=== PATIENT | female | born 1970 | race Caucasian/White ===

== ENCOUNTER 2019-03-30 13:23 | Inpatient (IN) ==
[2019-03-30] MEDS ORDERED: MORPHINE IV PRN (14:58)
[2019-03-30] MEDS ORDERED: LR 1,000 ML IV SCH (15:00)
[2019-03-30] MEDS: ZOSYN 3.375 GM in NS 50 ML IV SCH (20:39)
[2019-03-31] MEDS: ZOFRAN IV PRN ×2 (00:07→17:25)
[2019-03-31] MEDS: ZOSYN 3.375 GM in NS 50 ML IV SCH ×3 (03:30→14:30)
--- NOTE | 2019-03-31 06:07 | GENERAL SURGERY PROGRESS NOTE ---
DATE: 03/31/2019 SUBJECTIVE: Patient seems to be doing okay. No major complaints. OBJECTIVE: Vital signs: Patient is currently afebrile. Her vital signs are stable. General: No acute distress. HEENT: Normocephalic, atraumatic. Pupils equal, round, and reactive to light. Mucous membranes moist. Oropharynx benign. Neck: Supple. Trachea midline. Cardiovascular: Regular rate and rhythm. Lungs: Grossly clear. Abdomen: Soft. There is some discomfort in the right upper quadrant. No peritoneal signs. Extremities: Moves all extremities. Neurologic: Grossly intact. Skin: No signs of jaundice. Vascular: All extremities perfused. LABORATORY: None this morning. ASSESSMENT AND PLAN: A 48-year-old female with cholecystitis. Cholecystitis. At this time, we will plan on surgical intervention today. I discussed with her in the office yesterday the risks, benefits and alternatives. Risks including, but not limited to bleeding, infection, risk of anesthesia, risk of common bile duct injury, bile leak, and injury to other organs discussed. Again, we will plan on surgical intervention today. She is NPO. She is on antibiotics, and consent has been ordered. cc: Kenn Freedman MD
[2019-03-31] MEDS ORDERED: SENSORCAINE-MPF 0.5%/EPI 1:200,000 ONE (07:30)
[2019-03-31] MEDS ORDERED: LR 1,000 ML ONE (07:30)
[2019-03-31] MEDS ORDERED: DIPRIVAN 1% ONE (10:52)
[2019-03-31] MEDS ORDERED: TORADOL ONE (10:53)
[2019-03-31] MEDS ORDERED: XYLOCAINE-MPF 2% ONE (10:53)
[2019-03-31] MEDS ORDERED: ZOFRAN ONE (10:53)
[2019-03-31] MEDS ORDERED: DECADRON ONE (10:53)
[2019-03-31] MEDS ORDERED: ZEMURON ONE (10:53)
[2019-03-31] MEDS ORDERED: QUELICIN (DOSE) ONE (10:53)
[2019-03-31] MEDS ORDERED: VERSED ONE (12:11)
[2019-03-31] MEDS ORDERED: FENTANYL ONE (12:42)
[2019-03-31] MEDS ORDERED: ROBINUL ONE (13:00)
[2019-03-31] MEDS ORDERED: NEOSTIGMINE ONE (13:01)
[2019-03-31] MEDS: DILAUDID ONE ×2 (13:51→13:54)
--- NOTE | 2019-03-31 14:21 | OPERATIVE NOTE ---
PROCEDURE DATE: 03/31/2019 PREOPERATIVE DIAGNOSIS: Acute cholecystitis. POSTOPERATIVE DIAGNOSIS: Acute cholecystitis. PROCEDURES: Laparoscopic cholecystectomy. SURGEON: Kenn Freedman MD. MATERIAL CUTTER: None. ANESTHESIA: General endotracheal. OPERATIVE FINDINGS: Acute cholecystitis. COMPLICATIONS: None at the time of this dictation. ESTIMATED BLOOD LOSS: 30 mL. SPECIMEN REMOVED: Gallbladder. BRIEF HISTORY: A 48-year-old female presented to my office with cholecystitis. She wanted to have it removed. The risks, benefits, and alternatives for the procedure were discussed. Risks include, but not limited to bleeding, infection, risk of anesthesia, risk of common bile duct injury, bile leak, and injury to the organs discussed. All questions answered. DESCRIPTION OF PROCEDURE: After informed consent was obtained, the patient was brought to the operative theatre, transferred to the operating table, placed in the supine position. General endotracheal anesthesia was then performed without complication. Formal time-out was then performed confirming patient, date, procedure. All were in agreement. At that time, attention was given to the abdomen. An infraumbilical incision was made through which, using the Optiview technique, we inserted an 11 mm trocar, connected insufflation, pneumoperitoneum was achieved. Under direct visualization, we placed three more trocars, all 5 mm, 1 subxiphoid, 2 in the right upper quadrant. Using these, gallbladder was identified. It was distended and consistent with acute cholecystitis. We aspirated some of the fluid to facilitate retraction, retracted it, able to dissect out the cystic duct and cystic artery to achieve the critical view of safety. Doubly clipped and ligated the cystic duct and cystic artery, then dissected the gallbladder off the gallbladder fossa. We brought it out through the infraumbilical incision which had to be slightly enlarged to accommodate the stone burden. We then irrigated out the abdomen until suction fluid was clear. We examined the clips; they were in good position. No drainage of bile. No active bleeding. We then closed the infraumbilical incision with 0 Vicryl on a Medhat-Starr device, removed all trocars, disconnected insufflation. Pneumoperitoneum was released. All skin incisions were closed with 4-0 Monocryl. The patient tolerated the procedure well, was transferred back to the recovery room. cc: Kenn Freedman MD
[2019-03-31 16:25] VITALS: BP 107/63
== END 2019-03-31 18:47 | disposition home or self-care (01) | DRG 419 ==
LOC: DIRADM 13:23 → 4N 13:56
PROVIDERS: ADMIT Surgery; ATTEND Surgery